=== PATIENT | female | born 1990 | race Caucasian/White ===

== ENCOUNTER 2020-11-26 12:32 | Emergency (ER) | payer OTHER, SELFPAY ==
--- NOTE | ~2020-11-26 | XR_ITS ---
EXAMINATION: XR elbow LT min 3V DATE: 11/26/2020 12:59 INDICATION: Left elbow injury. TECHNIQUE: 4 views of left elbow were obtained. COMPARISON: None. FINDINGS: Bone alignment is normal. No fracture. Joint spaces are well maintained. There is no elbow joint effusion. There is soft tissue swelling overlying the olecranon, consistent with bursitis. IMPRESSION: 1. Olecranon bursitis. Reviewed, dictated and finalized at location A. IMPRESSION: 1. Olecranon bursitis.
--- NOTE | 2020-11-26 12:33 | ED.GENADULT ---
HPI - General Adult General Chief complaint: Extremity Injury, Upper Stated complaint: Left elbow injury Time Seen by Provider: 11/26/20 12:33 Source: patient Mode of arrival: ambulatory Limitations: no limitations History of Present Illness HPI narrative: 22-year-old female patient presents to the [facility] with complaints of left elbow pain. Patient states that last night she was getting out of her car missed a step coming out of her car and fell down landing on her left elbow. Denies taking anything for pain. Related Data Home Medications Medication Instructions Recorded Confirmed No Home Medications 11/26/20 11/26/20 Allergies Allergy/AdvReac Type Severity Reaction Status Date / Time No Known Allergies Allergy Verified 11/26/20 12:43 Review of Systems Review of Systems: Narrative: CONSTITUTIONAL: Denies fever, chills, or sweats. EYES: Denies visual changes, redness, or discharge. ENT: Denies rhinorrhea, congestion, sore throat, or otalgia. CARDIOVASCULAR: Denies chest pain, palpitations, or edema. RESPIRATORY: Denies cough or dyspnea. GASTROINTESTINAL: Denies abdominal pain, nausea, vomiting, or diarrhea. GENITOURINARY: Denies dysuria or hematuria. SKIN: Denies rash or itching. MUSCULOSKELETAL: Denies back pain, joint pain, or myalgia. Positive left elbow pain NEUROLOGIC: Denies headache, numbness, or weakness. PSYCHIATRIC: Denies anxiety or depression. PMFSH Comments At the time of my signature I agree with nursing past medical history, surgical, social, and family history. There is no relevant family history pertinent to the presenting complaint. Exam Narrative: Exam Narrative: GENERAL: Well-appearing, well-nourished, and in no acute distress. HEAD: Normocephalic, atraumatic. EYES: PERRLA and EOMI. ENT: Nares clear, no rhinorrhea or epistaxis. Mucous membranes moist. NECK: Supple. No lymphadenopathy CHEST: Clear to auscultation. No respiratory distress. HEART: Regular rate and rhythm. No murmur heard. Normal peripheral pulses. ABDOMEN: Soft, nontender, nondistended, normal active bowel sounds. EXTREMITIES: The L elbow is without obvious asymmetry or deformity when compared to the R elbow. Patient does have some swelling noted to the left elbow with an abrasion noted to the elbow. No obvious ecchymosis present. Patient has pain when trying to bend the elbow and twisting the wrist. Bony tenderness to palpation of the lateral epicondyle, olecranon, no tenderness over the radial head. No epicondylar or axillary lymphadenopathy. Normal muscle strength. Intact motor and sensation of ulnar, median, and radial nerves. SKIN: Warm, dry, no rash. NEURO: No focal deficits. Alert and oriented x3. Course Reevaluation(s) Reevaluation #1: Reevaluated patient and notified her that her x-ray is negative for any acute fractures. Discussed with her that it does not look like she is got accumulation of fluid around the joint which is what is causing the pain. Discussed with patient she can take Tylenol, ibuprofen for the pain, continue to elevate and ice it. Discussed with patient we are can go ahead and wrap her in an Vlad wrap today and put her in a sling and I will take her off work for couple of days. Patient is aware the plan of care denies any other questions or concerns. Date: 11/26/20 Time: 13:18 Vital Signs Vital signs: Vital Signs Temperature 37.0 C 11/26/20 12:43 Pulse Rate 79 11/26/20 12:43 Respiratory Rate 18 11/26/20 12:43 Blood Pressure 126/61 11/26/20 12:43 Pulse Oximetry 100 11/26/20 12:43 Temperature 37.0 C 11/26/20 12:43 Pulse Rate 79 11/26/20 12:43 Respiratory Rate 18 11/26/20 12:43 Blood Pressure 126/61 11/26/20 12:43 Pulse Oximetry 100 11/26/20 12:43 Vital signs reviewed Medical Decision Making Differential Diagnosis Differential Diagnosis: Differential diagnosis elbow strain, subluxed radial head, growth plate fracture,supracondylar fracture, subsequent
[2020-11-26 12:43] VITALS: BP 126/61; PULSE 79; RESP 18; TEMP 37; O2SAT 100
== END 2020-11-26 13:20 | disposition home or self-care (01) ==
PROVIDERS: Emergency Provider Nurse Practitioner Family; PCP Nurse Practitioner Family
DX: M70.22 Olecranon bursitis, left elbow (principal)
CPT/HCPCS: 73080; 99203; A4565; G0463

== ENCOUNTER 2021-05-24 11:24 | Emergency (ER) | payer OTHER, SELFPAY ==
--- NOTE | ~2021-05-24 | XR_ITS ---
XR wrist RT min 3V 05/24/2021 11:41 Indication: Right fifth metacarpal pain Procedure: 4 views right wrist Comparison: No prior studies for comparison. Findings: There is a nondisplaced fracture proximal aspect of the fifth metacarpal. Mild soft tissue swelling. No other fracture is identified. No foreign bodies. Impression: 1: Nondisplaced extra-articular fracture base of the right fifth metacarpal. Reviewed, dictated and finalized at location A. Impression: 1: Nondisplaced extra-articular fracture base of the right fifth metacarpal.
[2021-05-24 11:30] VITALS: BP 117/77; PULSE 85; RESP 16; TEMP 36.6; O2SAT 99
--- NOTE | 2021-05-24 12:27 | ED.UPPEXIN ---
HPI - Extremity Injury (Upper) General Chief Complaint: Extremity Injury, Upper Stated Complaint: rt wrist inj History of Present Illness HPI narrative: This is a 31-year-old female comes in complaining of left arm pain patient states that she was boxing with her son and when she hit it she must of hit it wrong because her hand was then swelling and severe pain. This happened approximately 24 hours ago Related Data Home Medications Medication Instructions Recorded Confirmed venlafaxine 75 mg PO DAILY 05/24/21 05/24/21 Allergies Allergy/AdvReac Type Severity Reaction Status Date / Time No Known Allergies Allergy Verified 05/24/21 11:54 Review of Systems Review of Systems: CONSTITUTIONAL: Denies fever, chills, or sweats. EYES: Denies visual changes, redness, or discharge. ENT: Denies rhinorrhea, congestion, sore throat, or otalgia. CARDIOVASCULAR:Denies chest pain, palpitations, or edema. RESPIRATORY: Denies cough or dyspnea. GASTROINTESTINAL: Denies abdominal pain, nausea, vomiting, or diarrhea. GENITOURINARY: Denies dysuria or hematuria. SKIN:[Denies rash or itching. MUSCULOSKELETAL:Denies back pain, left hand and finger joint pain, or myalgia. NEUROLOGIC: Denies headache, numbness, or weakness. PSYCHIATRIC:Denies anxiety or depression PMFSH Comments At time as signature, I have reviewed and agree with nursing past medical, social, surgical and family history. Please see nursing chart for further information. There is no relevant family history pertinent to the presenting complaint. Exam Narrative: GENERAL:Well-appearing, well-nourished, and in no acute distress. HEAD:Normocephalic, atraumatic. EYES: PERRLA ENT: Nares clear, no rhinorrhea or epistaxis. Mucous membranes moist. NECK: Supple. CHEST: Clear to auscultation. No respiratory distress. HEART: Regular rate and rhythm. ABDOMEN: Soft, nontender, nondistended, normal active bowel sounds. EXTREMITIES: Normal range of motion. mild finger and hand edema. SKIN: Warm, dry, no rash. NEURO: No focal deficits. Alert and oriented x3. Course Course Emergency Course: Express [address] [id number] XRay ReportSigned Patient: VinitaYasmin FLORESOB: 1990MR#: [id number]/Sex: 31 / FAcct:[id number]: EXPBETH ADM Date: 05/24/21Attending Dr: Ordering Physician: Daniela Kyle APN Date of Service: 05/24/21 Procedure(s): XR wrist RT min 3V Accession Number(s): [id number] cc: Daniela Kyle APN; COLLADO,ANA LAURAKAREN SAUER~ XR wrist RT min 3V 05/24/2021 11:41 Indication: Right fifth metacarpal pain Procedure: 4 views right wrist Comparison: No prior studies for comparison. Findings: There is a nondisplaced fracture proximal aspect of the fifth metacarpal. Mild soft tissue swelling. No other fracture is identified. No foreign bodies. Impression: 1: Nondisplaced extra-articular fracture base of the right fifth metacarpal. Vital Signs Vital signs: Vital Signs Temperature 97.9 F 05/24/21 11:30 Pulse Rate 85 05/24/21 11:30 Respiratory Rate 16 05/24/21 11:30 Blood Pressure 117/77 05/24/21 11:30 Pulse Oximetry 99 05/24/21 11:30 Temperature 97.9 F 05/24/21 11:30 Pulse Rate 85 05/24/21 11:30 Respiratory Rate 16 05/24/21 11:30 Blood Pressure 117/77 05/24/21 11:30 Pulse Oximetry 99 05/24/21 11:30 Discharge Plan Discharge Clinical Impression: Fx metacarpal Qualifiers: Encounter type: initial encounter Metacarpal bone: fifth Fracture type: closed Metacarpal location: base Fracture alignment: nondisplaced Laterality: right Qualified Code(s): S62.346A - Nondisplaced fracture of base of fifth metacarpal bone, right hand, initial encounter for closed fracture Patient Disposition: Home, Self-Care Condition: Stable Instructions: Antibiotic Form, Finger Fracture (ED), Boxer Fracture (ED) Additional Instructions: Ice to the area 20-30 minutes 4-6 t
== END 2021-05-24 12:35 | disposition home or self-care (01) ==
PROVIDERS: Emergency Provider Nurse Practitioner Family; PCP Nurse Practitioner Family
DX: S62.346A Nondisplaced fracture of base of fifth metacarpal bone, right hand, initial encounter for closed fracture (principal); W22.8XXA Striking against or struck by other objects, initial encounter; Y93.71 Activity, boxing; F41.9 Anxiety disorder, unspecified; F32.9 Major depressive disorder, single episode, unspecified
CPT/HCPCS: 29125; 73110; 99214; G0463

== ENCOUNTER 2021-08-30 09:28 | Emergency (ER) | payer OTHER, SELFPAY ==
[2021-08-30 10:38] VITALS: BP 132/65; PULSE 85; RESP 16; TEMP 37; O2SAT 100
--- NOTE | 2021-08-30 11:33 | ED.URI ---
HPI - URI/Sore Throat General Chief Complaint: Upper Respiratory Infection Stated Complaint: chest hurts,head denise Time Seen by Provider: 08/30/21 11:21 Source: patient and RN notes reviewed Mode of arrival: ambulatory Limitations: no limitations History of Present Illness HPI Narrative: Patient presents today with a 1 week history of nasal congestion, postnasal drip, headache, and mild cough. She had a telemedicine visit 2 days ago with her PCP and was started on azithromycin and Medrol Dosepak, and states she is feeling slightly better after taking these medications for a few days. Denies fever. Patient states she has asthma but has not been using her inhaler. She has not been taking any [id number] medications for her symptoms prior to arrival. She has been vaccinated against COVID-19 Related Data Home Medications Medication Instructions Recorded Confirmed azithromycin 08/30/21 methylprednisolone 08/30/21 08/30/21 Allergies Allergy/AdvReac Type Severity Reaction Status Date / Time No Known Allergies Allergy Verified 08/30/21 10:52 Review of Systems Review of Systems: CONSTITUTIONAL: Denies body aches, fever, chills, or sweats. EYES: Denies visual changes, redness, or discharge. ENT: Denies rhinorrhea,sore throat, or otalgia.+ Congestion, postnasal drip CARDIOVASCULAR: Denies chest pain, palpitations, or edema. RESPIRATORY: Denies dyspnea.+ Cough GASTROINTESTINAL: Denies abdominal pain, nausea, vomiting, or diarrhea. GENITOURINARY: Denies dysuria or hematuria. SKIN: Denies rash, itching, or wounds. MUSCULOSKELETAL: Denies back pain, joint pain, or myalgia. NEUROLOGIC: Denies numbness, tingling, or weakness.+ Headache PSYCH: Denies depression or anxiety. PMFSH Comments At time of signature, I have reviewed and agree with nursing past medical, surgical, social and family history unless otherwise noted. Please see nursing chart for further information. There is no relevant family history pertinent to the presenting complaint Exam Narrative: GENERAL: Well-appearing, well-nourished, and in no acute distress. HEAD: Normocephalic, atraumatic. EYES: EOMI. No redness or drainage. Conjunctivae normal. ENT: Mucous membranes pink and moist. Nares clear. No rhinorrhea. TMs normal bilaterally. Throat normal. Uvula midline. NECK: Normal AROM. Supple. No lymphadenopathy. CHEST: No respiratory distress. Clear to auscultation. HEART: Regular rate and rhythm. No murmur appreciated. Normal peripheral pulses. EXTREMITIES: Normal range of motion. No edema. SKIN: Warm, dry, no rash. Capillary refill normal. Normal skin turgor. NEURO: No focal deficits. Alert and oriented x3. Gait steady. PSYCH: Normal affect. No signs of depression or anxiety. Course Course Level of Care: Express Care Visit Vital Signs Vital signs: Vital Signs Temperature 98.6 F 08/30/21 10:38 Pulse Rate 85 08/30/21 10:38 Respiratory Rate 16 08/30/21 10:38 Blood Pressure 132/65 08/30/21 10:38 Pulse Oximetry 100 08/30/21 10:38 Temperature 98.6 F 08/30/21 10:38 Pulse Rate 85 08/30/21 10:38 Respiratory Rate 16 08/30/21 10:38 Blood Pressure 132/65 08/30/21 10:38 Pulse Oximetry 100 08/30/21 10:38 Reviewed. Pt has been instructed to follow up with her PCP regarding her elevated blood pressure today. MDM - URI/Sore Throat Differential Diagnosis Differential diagnosis: Likely upper respiratory infection, viral infection and other (COVID-19) Lab Data Attestation: I reviewed the patient's lab results. Lab results narrative: Rapid COVID-19 test positive Critical Care Time Critical Care Time Critical Care Time: No Discharge Plan Discharge Clinical Impression: COVID-19 Patient Disposition: Home, Self-Care Condition: Stable Instructions: COVID-19 (Coronavirus Disease 2019) (ED) Additional Instructions: You have tested positive for COVID-19 today. Please take Mucinex during the day and u
== END 2021-08-30 11:45 | disposition home or self-care (01) ==
PROVIDERS: Emergency Provider Nurse Practitioner; PCP Nurse Practitioner Family
DX: U07.1 COVID-19 (principal)
CPT/HCPCS: 87426; 99213; C9803; G0463

== ENCOUNTER 2022-12-19 14:02 | Emergency (ER) | payer OTHER, SELFPAY ==
[2022-12-19 14:07] VITALS: BP 127/75; PULSE 69; RESP 18; TEMP 36.8; O2SAT 99
--- NOTE | 2022-12-19 14:42 | ED.GENADULT ---
HPI - General Adult General Chief complaint: Upper Respiratory Infection Stated complaint: Sore Throat Source: patient Mode of arrival: ambulatory Limitations: no limitations History of Present Illness HPI narrative: PATIENT PRESENTS FOR EVALUATION OF SORE THROAT. SHE INDICATES SHE DEVELOPS SYMPTOMS WHICH WERE MILD APPROXIMATELY 1.5 WEEKS AGO. TODAY AROUND 2:00 A.M. IN THE MORNING SHE WOKE FROM SLEEP WITH SIGNIFICANTLY WORSE PAIN IN HER THROAT. SHE DENIES ANY FEVER, CHILLS, NAUSEA, VOMITING, OTALGIA, COUGH, OTHER INFECTIOUS SYMPTOMS. HER CHILDREN HAD STREP ABOUT 3 WEEKS AGO. SHE IS NOT TAKING ANY MEDICATION TO ASSIST WITH HER SYMPTOMS. SHE DOES NOT SMOKE. Related Data Allergies Allergy/AdvReac Type Severity Reaction Status Date / Time No Known Allergies Allergy Verified 08/30/21 10:52 Review of Systems Review of Systems: CONSTITUTIONAL: DENIES FEVER, CHILLS, OR SWEATS. EYES: DENIES VISUAL CHANGES, REDNESS, OR DISCHARGE. ENT: REPORTS SORE THROAT. DENIES RHINORRHEA, CONGESTION, OR OTALGIA. CARDIOVASCULAR: DENIES CHEST PAIN, PALPITATIONS, OR EDEMA. RESPIRATORY: DENIES COUGH OR DYSPNEA. GASTROINTESTINAL: DENIES ABDOMINAL PAIN, NAUSEA, VOMITING, OR DIARRHEA. GENITOURINARY: DENIES DYSURIA OR HEMATURIA. SKIN: DENIES RASH OR ITCHING. MUSCULOSKELETAL: DENIES BACK PAIN, JOINT PAIN, OR MYALGIA. NEUROLOGIC: DENIES HEADACHE, NUMBNESS, DIZZINESS, OR WEAKNESS. PSYCHIATRIC: DENIES ANXIETY OR DEPRESSION. [facility] Past Medical History Medical History (Updated 12/19/22 @ 14:43 by Harpal Goyal, [facility], ) No pertinent past medical history Surgical History Surgical History No pertinent past surgical history Family History Family History Mother Family history non-contributory Social History Social History Smoking status: Never smoker Substance use: never Living arrangements: with family Gender identity (if verbalized by the patient): Female Sexual Orientation (if Verbalized by the Patient): Straight or Heterosexual Spiritual care concerns: No Exam Narrative: GENERAL: WELL-APPEARING, WELL-NOURISHED, AND IN NO ACUTE DISTRESS. HEAD: NORMOCEPHALIC, ATRAUMATIC. EYES: PERRLA AND EOMI. ENT: NARES CLEAR, NO RHINORRHEA OR EPISTAXIS. MUCOUS MEMBRANES MOIST. BILATERAL TONSILLAR ENLARGEMENT AND ERYTHEMA. NO EXUDATE. UVULA IS MIDLINE.BILATERAL TMS PEARLY RAYMOND NONBULGING NECK: SUPPLE. NO ADENOPATHY OR MASSES. NO CAROTID BRUITS OR JVD CHEST: CLEAR TO AUSCULTATION. NO RESPIRATORY DISTRESS. NO WHEEZES RALES OR RHONCHI HEART: REGULAR RATE AND RHYTHM. NO MURMUR HEARD. NORMAL PERIPHERAL PULSES. ABDOMEN: SOFT, NONTENDER, NONDISTENDED, NORMAL ACTIVE BOWEL SOUNDS. EXTREMITIES: NORMAL RANGE OF MOTION. NO EDEMA. SKIN: WARM, DRY, NO RASH. NEURO: NO FOCAL DEFICITS. ALERT AND ORIENTED X3. PSYCH: NORMAL MOOD AND AFFECT. Course Course Emergency Course: THIS IS A 32-YEAR-OLD FEMALE WHO PRESENTED FOR EVALUATION OF SORE THROAT. RAPID STREP POSITIVE. WILL TX WITH AMOXICILLIN. IBUPROFEN FOR PAIN AND SWELLING. INCREASE HYDRATION. FOLLOW-UP WITH PRIMARY PROVIDER. GO TO THE ER FOR DIFFICULTY BREATHING OR SWALLOWING. PATIENT IN AGREEMENT WITH PLAN OF CARE Level of Care: Express Care Visit Vital Signs Vital signs: Vital Signs Temperature 36.8 C 12/19/22 14:07 Pulse Rate 69 12/19/22 14:07 Respiratory Rate 18 12/19/22 14:07 Blood Pressure 127/75 12/19/22 14:07 Pulse Oximetry 99 12/19/22 14:07 Oxygen Delivery Room Air 12/19/22 14:07 Temperature 36.8 C 12/19/22 14:07 Pulse Rate 69 12/19/22 14:07 Respiratory Rate 18 12/19/22 14:07 Blood Pressure 127/75 12/19/22 14:07 Pulse Oximetry 99 12/19/22 14:07 Oxygen Delivery Room Air 12/19/22 14:07 Medical Decision Making Vital Signs Vital Signs:
== END 2022-12-19 14:49 | disposition home or self-care (01) ==
PROVIDERS: Emergency Provider Nurse Practitioner; PCP Nurse Practitioner Family
DX: J02.0 Streptococcal pharyngitis (principal)
CPT/HCPCS: 87880; 99213; G0463

== ENCOUNTER 2023-08-27 08:14 | Emergency (ER) | payer OTHER, SELFPAY ==
[2023-08-27 08:20] VITALS: BP 116/53; PULSE 78; RESP 18; TEMP 36.8; O2SAT 100
--- NOTE | 2023-08-27 09:09 | ED.GENADULT ---
HPI - General Adult General Chief complaint: Upper Respiratory Infection Stated complaint: Sore Throat/Ear Pain Source: patient Mode of arrival: ambulatory Limitations: no limitations History of Present Illness HPI narrative: Patient presents for evaluation of sore throat since 08/15/2023. She was given a prescription for amoxicillin, which she completed. She had some improvement in her symptoms but recurrence thereafter. She indicates that her sore throat is currently worse. She has associated rhinorrhea. No fever, chills, nausea, vomiting, diarrhea, cough, shortness of breath. No recent sick contacts to her knowledge. She has taken Tylenol for symptoms. Related Data Home Medications Medication Instructions Recorded Confirmed albuterol sulfate 90 mcg/actuation 2 puff inhalation Q4-6H PRN 08/27/23 08/27/23 aerosol inhaler Shortness Of Breath Or Wheezing Allergies Allergy/AdvReac Type Severity Reaction Status Date / Time No Known Allergies Allergy Verified 08/27/23 08:41 Review of Systems Review of Systems: CONSTITUTIONAL: Denies fever, chills, or sweats. EYES: Denies visual changes, redness, or discharge. ENT: Reports sore throat and rhinorrhea. Denies congestion, or otalgia. CARDIOVASCULAR: Denies chest pain, palpitations, or edema. RESPIRATORY: Denies cough or dyspnea. GASTROINTESTINAL: Denies abdominal pain, nausea, vomiting, or diarrhea. GENITOURINARY: Denies dysuria or hematuria. SKIN: Denies rash or itching. MUSCULOSKELETAL: Denies back pain, joint pain, or myalgia. NEUROLOGIC: Denies headache, numbness, dizziness, or weakness. PSYCHIATRIC: Denies anxiety or depression. [facility] Past Medical History Medical History No pertinent past medical history Surgical History Surgical History No pertinent past surgical history Family History Family History Mother Family history non-contributory Social History Social History Smoking status: Never smoker Substance use: never Living arrangements: with family Gender identity (if verbalized by the patient): Female Sexual Orientation (if Verbalized by the Patient): Straight or Heterosexual Spiritual care concerns: No Exam Narrative: GENERAL: Well-appearing, well-nourished, and in no acute distress. HEAD: Normocephalic, atraumatic. EYES: PERRLA and EOMI. ENT: Nares clear, no rhinorrhea or epistaxis. Mucous membranes moist. There is some posterior pharyngeal erythema without exudate. Uvula is midline. Bilateral TMs pearly renee nonbulging NECK: Supple. No adenopathy or masses. No carotid bruits or JVD CHEST: Clear to auscultation. No respiratory distress. No wheezes rales or rhonchi HEART: Regular rate and rhythm. No murmur heard. Normal peripheral pulses. ABDOMEN: Soft, nontender, nondistended, normal active bowel sounds. EXTREMITIES: Normal range of motion. No edema. SKIN: Warm, dry, no rash. NEURO: No focal deficits. Alert and oriented x3. PSYCH: Normal mood and affect. Course Course Emergency Course: This is a 33-year-old female who presented for evaluation of sore throat. She completed antibiotic therapy. Strep, mono, COVID were all negative. Exam consistent with viral pharyngitis. OTC meds for symptom management. Follow up with PCP. Go to the ER for worsening symptoms. Pt in agreement with plan of care. Level of Care: Express Care Visit Vital Signs Vital signs: Vital Signs Temperature 36.8 C 08/27/23 08:20 Pulse Rate 78 08/27/23 08:20 Respiratory Rate 18 08/27/23 08:20 Blood Pressure 116/53 L 08/27/23 08:20 Pulse Oximetry 100 08/27/23 08:20 Oxygen Delivery Room Air 08/27/23 08:20 Temperature 36.8 C 08/27/23 08:20 Pulse Rate 78 08/27/23 08:20 R
== END 2023-08-27 09:10 | disposition home or self-care (01) ==
PROVIDERS: Emergency Provider Nurse Practitioner; PCP Nurse Practitioner Family
DX: J02.9 Acute pharyngitis, unspecified (principal); Z20.822 Contact with and (suspected) exposure to COVID-19
CPT/HCPCS: 36416; 86308; 87081; 87426; 87804; 87880; 99213; C9803; G0463

== ENCOUNTER 2024-02-21 16:40 | Emergency (ER) | payer OTHER, SELFPAY ==
[2024-02-21 16:49] VITALS: BP 139/74; PULSE 84; RESP 20; TEMP 36.8; O2SAT 100
--- NOTE | 2024-02-21 17:00 | ED.SKABFB ---
HPI - Skin/Abscess/Foreign Bdy General Chief complaint: Skin/Abscess/Foreign Body Stated complaint: Bee Sting Time Seen by Provider: 02/21/24 17:00 Source: patient, RN notes reviewed and old records reviewed Mode of arrival: ambulatory Limitations: no limitations History of Present Illness HPI narrative: 33-year-old female presents to [facility] with complaints of bee sting to left medial ankle which occurred 2 days ago. Patient reports area of redness surrounding bite area that is swollen and itchy has tried Benadryl, after bite and also some ice to area without resolution. Patient reports that area is tender and is itchy denies any drainage from skin. Patient has noted [id number] area of redness to left medial ankle surrounding bee sting with some warmth to tissue noted. MD complaint: insect bite/sting and other (cellulitis) Onset (ago): day(s) (2) Location: LLE (left medial ankle) Severity: moderate Quality: aching and pruritic Treatments prior to arrival: Benadryl and other (after bite ointment and ice compresses) Related Data Home Medications Medication Instructions Recorded Confirmed albuterol sulfate 90 mcg/actuation 2 puff inhalation Q4-6H PRN 08/27/23 08/27/23 aerosol inhaler Shortness Of Breath Or Wheezing naproxen 500 mg tablet mg 02/21/24 Allergies Allergy/AdvReac Type Severity Reaction Status Date / Time No Known Allergies Allergy Verified 08/27/23 08:41 Review of Systems Review of Systems: CONSTITUTIONAL: Denies fever, chills, or sweats. CARDIOVASCULAR: Denies chest pain, palpitations, or edema. RESPIRATORY: Denies cough or dyspnea. GASTROINTESTINAL: Denies abdominal pain, nausea, vomiting SKIN: Reports redness and swelling around bee sting on left medial ankle with some warmth. Denies purulent drainage, vesicles,or any weeping of skin, is tender and itchy MUSCULOSKELETAL: Denies myalgia. NEUROLOGIC: Denies headache, numbness All systems reviewed & are unremarkable except as noted in HPI and below PMFSH Past Medical History Medical History (Updated 02/23/24 @ 08:29 by Martine Miranda NP) Anxiety and depression Boxer's fracture right Surgical History Surgical History (Updated 02/23/24 @ 08:25 by Martine Miranda NP) H/O LEEP Family History Family History Mother Family history non-contributory Social History Social History Smoking status: Never smoker Substance use: never Living arrangements: with family Gender identity (if verbalized by the patient): Female Sexual Orientation (if Verbalized by the Patient): Straight or Heterosexual Spiritual care concerns: No Comments At time of signature, agree with nursing past medical, surgical, social and family history. There is no relevant family history pertinent to the presenting complaint Exam Narrative: GENERAL: Well-appearing, well-nourished, and in no acute distress. HEAD: Normocephalic, atraumatic. EYES: PERRLA and EOMI. ENT: Nares clear, no rhinorrhea or epistaxis. Mucous membranes moist. NECK: Supple.no lymphadenopathy CHEST: Clear to auscultation. No respiratory distress.SAO2 100% on room air HEART: Regular rate and rhythm. No murmur heard. Normal peripheral pulses. ABDOMEN: Soft, nontender, nondistended, normal active bowel sounds. EXTREMITIES: Normal range of motion. No edema. SKIN: Warm, dry. Erythema, induration, tenderness, warmth to left medial ankle with pinpoint sting lissette and 4cm X 4 cm area of redness around bite. small redness area to right lateral upper thigh, unsure if stung there also no lissette on skin to indicate sting, no warmth or itching NEURO: No focal deficits. Alert and oriented x3. Course Course Emergency Course: Patient is aware of diagnosis, understands and agrees to treatment plan. Anticipatory guidance given. Patient agrees to follow-up as directed and is aware of kemal
== END 2024-02-21 17:25 | disposition home or self-care (01) ==
PROVIDERS: Emergency Provider Registered Nurse; PCP Nurse Practitioner Family
DX: L03.116 Cellulitis of left lower limb (principal); T63.441A Toxic effect of venom of bees, accidental (unintentional), initial encounter
CPT/HCPCS: 99213; G0463

== ENCOUNTER 2024-05-11 18:18 | Emergency (ER) | payer OTHER, SELFPAY ==
[2024-05-11 18:24] VITALS: BP 125/68; PULSE 71; RESP 16; TEMP 36.6; O2SAT 100
--- NOTE | 2024-05-11 18:39 | ED.URI ---
HPI - URI/Sore Throat General Chief Complaint: Headache Stated Complaint: Headache/Sore Throat Time Seen by Provider: 05/11/24 18:39 Source: patient and RN notes reviewed Mode of arrival: ambulatory Limitations: no limitations History of Present Illness HPI Narrative: 34-year-old female presents concern for headache for up to a month. She reports headache response to Excedrin for about an hour and then returns. Reports symptoms started 1 month ago with the episode of hives, she took antihistamines for that and it went away and then she began having this ongoing headache. She reports in the last couple days her throat is sore and feels slightly swollen. She denies fever, aches, chills, sweats. Denies sinus pain, nasal congestion. Reports she had 2 day history of runny nose earlier this week. She denies cough, stomach ache. She has not been taking any other medications for her symptoms besides Excedrin. MD elicited complaint: sore throat and other (Headache) Related Data Allergies Allergy/AdvReac Type Severity Reaction Status Date / Time No Known Allergies Allergy Verified 08/27/23 08:41 Review of Systems Review of Systems: CONSTITUTIONAL: Denies malaise, chills, sweats, or fever. EYES: Denies visual changes, redness, or discharge. ENT: Denies rhinorrhea, congestion, sinus pain, otalgia. Reports sore throat. CARDIOVASCULAR: Denies chest pain, palpitations, or edema. RESPIRATORY: Denies cough. Denies dyspnea. GASTROINTESTINAL: Denies abdominal pain, nausea, vomiting, diarrhea SKIN: Denies rash or itching. MUSCULOSKELETAL: Denies myalgia. NEUROLOGIC: Reports headache. All systems reviewed & are unremarkable except as noted in HPI and below PMFSH Past Medical History Medical History (Updated 05/11/24 @ 18:58 by Ariane Carrasco NP) Anxiety and depression Boxer's fracture right Surgical History Surgical History (Updated 02/23/24 @ 08:25 by Martine Miranda NP) H/O LEEP Family History Family History Mother Family history non-contributory Social History Social History Smoking status: Never smoker Substance use: never Living arrangements: with family Gender identity (if verbalized by the patient): Female Sexual Orientation (if Verbalized by the Patient): Straight or Heterosexual Spiritual care concerns: No Comments At time of signature, agree with nursing past medical, surgical, social and family history. There is no relevant family history pertinent to the presenting complaint Exam Narrative: GENERAL: Well-appearing, well-nourished, and in no acute distress. HEAD: Normocephalic EYES: PERRLA, conjunctivae clear ENT: Nares clear. Mucous membranes moist. TM pearly renee with sharp light reflex bilaterally; no tragal tenderness. Oropharynx not erythematous without lesions. Tonsils not enlarged and without exudate, no drooling, no hoarseness, no trismus, uvula midline. NECK: Supple. No lymphadenopathy CHEST: Clear to auscultation, breath sounds equal. No wheezing, rhonchi, rales, or stridor. No respiratory distress, speaks in full sentences. HEART: Regular rate and rhythm. No murmur heard. SKIN: Warm, dry, no rash. NEURO: Alert and oriented x3. No focal deficits, cranial nerves 2-12 grossly intact PSYCH: Normal mood and affect Course Course Emergency Course: Patient is aware of diagnosis, understands and agrees to treatment plan. Anticipatory guidance given. Patient agrees to follow-up as directed and is aware of reasons to seek care at the emergency department. Portions of this record may have been created with voice recognition software Level of Care: Express Care Visit Vital Signs Vital signs: Vital Signs Temperature 97.9 F 05/11/24 18:24 Pulse Rate 71 05/11/24 18:24 Respiratory Rate 16 05/11/24 18:24 Blood Pressure 125/68 05/11/24 18:24 Pulse Oximetr
[2024-05-11 18:58] LABS: EDSTREPNEGPOS1 Negative (Negative)
== END 2024-05-11 19:06 | disposition home or self-care (01) ==
PROVIDERS: Emergency Provider Nurse Practitioner; PCP Nurse Practitioner Family
DX: R51.9 Headache, unspecified (principal)
CPT/HCPCS: 87081; 87880; 99213; G0463